=== PATIENT | female | born 1995 | race Caucasian/White ===

== ENCOUNTER 2022-05-17 08:00 | Outpatient (CLI) | payer OTHER ==
--- NOTE | 2022-05-17 15:57 | XRAY Report ---
PROCEDURE: Chest 2 View X-Ray INDICATIONS: ACUTE COUGH TECHNIQUE: 2 view(s) of the chest. COMPARISON: None. FINDINGS: Surgical changes and devices: None. Lungs and pleura: No pleural effusions or pneumothorax. There is a right upper lobe consolidation co nsistent with pneumonia. Mediastinum: Mediastinal contours are normal. Heart size is normal. Bones and chest wall: No suspicious bony abnormalities. Soft tissues appear unremarkable. IMPRESSION: Right upper lobe consolidation consistent with pneumonia. Reviewed by: Bacilio Green on 05/17/2022 2:55 PM SURJIT Approved by: Bacilio Green on 05/17/2022 2:55 PM AKDT Station ID: [id number]
== END 2022-05-17 23:59 | disposition home or self-care (01) ==
LOC: DI.S 08:00
PROVIDERS: ATTEND Physician Assistant
DX: R05.1 Acute cough (principal); R91.8 Other nonspecific abnormal finding of lung field